=== PATIENT | female | born 1960 | race African-American/Black ===

== ENCOUNTER 2017-10-02 12:53 | Observation (INO) | payer OTHER ==
[~2017-10-02] VITALS: Ht 165.1 cm; Wt 81.6 kg
[2017-10-02 14:07] LABS: BUN/Creatinine Ratio 17.5; Bilirubin, Total 0.9 mg/dL (0.2-1.0); Potassium 3.4 mmol/L (3.5-5.1); Total Protein 6.6 g/dL (6.4-8.2)
[2017-10-02 14:13] LABS: Basophils # (auto) 0 uL; Eosinophils # (auto) 0 uL; Hematocrit 51.5 % (36.0-46.0); Hemoglobin 16.7 g/dL (12.2-16.2); Lymphocytes # (auto) 0.8 uL; Lymphocytes % (auto) 5.5 % (10.0-50.0); Mean Corpuscular Hemoglobin 27.3 pg (28.0-32.0); Mean Corpuscular Hgb Conc. 32.5 g/dL (32.0-36.0); Monocytes # (auto) 1.1 uL; Monocytes % (auto) 7.4 % (0.0-12.0); Neutrophils # (auto) 13.1 uL; Neutrophils % (auto) 87.1 % (37.0-80.0); Nucleated Red Blood Cells % 1.3 %; Platelet Count (auto) 108 10^3/uL (140-450); Red Blood Cells 6.13 10^6/uL (4.0-5.20); Red Cell Distribution Width 14.2 % (11.8-14.3)
[2017-10-02 16:14] LABS: Magnesium 2.3 mg/dL (1.6-2.6)
[2017-10-02] MEDS ORDERED: ONDANSETRON HCL 4 MG/2 ML VIAL IV ONE (16:30)
[2017-10-02] MEDS ORDERED: SODIUM CHLORIDE 0.9% 1,000 ML IV ONE (16:30)
[2017-10-02 16:51] LABS: INR 1.12 (0.9-1.15); Partial Thromboplastin Time 21.2 sec (23.78-33.04); Prothrombin Time 11.9 sec (9.27-12.13)
[2017-10-02 17:42] LABS: Lactic Acid w/Reflex 2.2 mmol/L (0.4-2.0)
[2017-10-02] MEDS ORDERED: cefTRIAXone 1GM/10ml IVPUSH 10 ML IV ONE (18:15)
[2017-10-02 20:57] VITALS: BP 114/69
== END 2017-10-02 21:30 | disposition short-term general hospital (02) | DRG 312 ==
LOC: ER 12:53 → OVERFLOW 12:54 → ER 21:30
PROVIDERS: ADMIT Family Medicine; ATTEND Family Medicine
DX: R55 Syncope and collapse (principal); C25.9 Malignant neoplasm of pancreas, unspecified; D69.6 Thrombocytopenia, unspecified; N18.3 Chronic kidney disease, stage 3 (moderate); D72.829 Elevated white blood cell count, unspecified; I12.9 Hypertensive chronic kidney disease with stage 1 through stage 4 chronic kidney disease, or unspecified chronic kidney disease; Z82.49 Family history of ischemic heart disease and other diseases of the circulatory system; Z85.07 Personal history of malignant neoplasm of pancreas; Z92.21 Personal history of antineoplastic chemotherapy
CPT/HCPCS: 36415; 70450; 71045; 80053; 83605; 83735; 84484; 85025; 85610; 85730; 87040; 93005; 96361; 96374; 96375; 99291; G0378; J2405; J7030

== ENCOUNTER 2017-10-11 14:40 | Emergency (ER) | payer OTHER ==
[~2017-10-11] VITALS: Ht 30.5 cm; Wt 0.5 kg
[2017-10-11] MEDS ORDERED: CALCIUM CHLOR(10%) 100MG/ML 10ML SYRINGE IV ONE (14:41)
[2017-10-11] MEDS ORDERED: SODIUM BICARBONATE 8.4% INJ 50ML SYRINGE IV ONE (14:41)
[2017-10-11] MEDS ORDERED: AMIODARONE HCL (50 MG/ ML) 3 ML VIAL IV ONE (14:41)
[2017-10-11] MEDS ORDERED: EPINEPHrine HCL 1 MG/10 ML SYRG IV ONE (14:41)
[2017-10-11] MEDS ORDERED: SODIUM BICARBONATE 8.4% INJ 50ML SYRINGE ONE (15:03)
[2017-10-11] MEDS ORDERED: EPINEPHrine HCL 1 MG/10 ML SYRG ONE (15:05)
[2017-10-11] MEDS ORDERED: AMIODARONE HCL 900 MG in DEXTROSE 500 ML IV SCH ×2 (15:07→21:07)
[2017-10-11 15:41] VITALS: BP 0/0
[2017-10-11 15:46] LABS: Albumin 2.8 g/dL (3.4-5.0); BUN/Creatinine Ratio 25.3; Bilirubin, Total 1.1 mg/dL (0.2-1.0); Magnesium 3.5 mg/dL (1.6-2.6); Potassium 4.2 mmol/L (3.5-5.1); Total Protein 6.7 g/dL (6.4-8.2)
[2017-10-11 16:00] LABS: Calcium 15.2 mg/dL (8.5-10.1)
== END 2017-10-11 15:51 | disposition expired ==
LOC: ER 14:40 → EDBD 14:40 → ER 15:51
DX: I46.9 Cardiac arrest, cause unspecified (principal); C25.9 Malignant neoplasm of pancreas, unspecified; I10 Essential (primary) hypertension; Z88.0 Allergy status to penicillin; Z88.1 Allergy status to other antibiotic agents
CPT/HCPCS: 36415; 36556; 36600; 80053; 82805; 83735; 84484; 92950; 99291; J0171; J0282; J7060; 93005